=== PATIENT | female | born 1985 | race Caucasian/White ===

== ENCOUNTER 2019-04-24 17:50 | Emergency (ER) | payer MEDICAID ==
[~2019-04-24] VITALS: Ht 167.6 cm; Wt 107.1 kg
[~2019-04-24 17:50] MED LIST: ACET-141 PO; CETI10CA PO; FEXO180T61 PO; PRED20TA PO; PREN-39 PO
[2019-04-24 17:53] VITALS: BP 139/84; PULSE 93; RESP 16; Ht 167.6 cm; Wt 107.1 kg
== END 2019-04-24 19:24 | disposition home or self-care (01) ==
LOC: E/R 17:50
DX: O99.89 Other specified diseases and conditions complicating pregnancy, childbirth and the puerperium (principal); M79.601 Pain in right arm; O26.892 Other specified pregnancy related conditions, second trimester; R10.2 Pelvic and perineal pain; Z3A.18 18 weeks gestation of pregnancy
CPT/HCPCS: 76805; Z7502